=== PATIENT | male | born 1995 | race African-American/Black ===

== ENCOUNTER 2018-01-27 06:56 | Emergency (ER) | payer MEDICAID ==
[~2018-01-27] VITALS: Ht 167.6 cm; Wt 59.0 kg
[2018-01-27 07:30] VITALS: BP 122/65
== END 2018-01-27 07:48 | disposition home or self-care (01) ==
LOC: ER 06:56
DX: K04.7 Periapical abscess without sinus (principal); F17.210 Nicotine dependence, cigarettes, uncomplicated